=== PATIENT | female | born 1945 | race Two or more races ===

== ENCOUNTER 2017-09-19 22:53 | Emergency (ER) | payer MEDICAID, OTHER ==
[~2017-09-19] VITALS: Ht 154.9 cm; Wt 58.1 kg
[~2017-09-19 22:53] MED LIST: FLUT100M7; GABA300C10; NAPR500T31; PROAIR
[2017-09-19 23:31] LABS: Basophils # (auto) 0.1 uL; Basophils % (auto) 0.5 % (0.0-2.0); Eosinophils # (auto) 0 uL; Eosinophils % (auto) 0.2 % (0.0-7.0); Hematocrit 41.2 % (36.0-46.0); Hemoglobin 13.7 g/dL (12.2-16.2); Lymphocytes # (auto) 1.8 uL; Lymphocytes % (auto) 10.6 % (10.0-50.0); Mean Corpuscular Hemoglobin 30.4 pg (28.0-32.0); Mean Corpuscular Hgb Conc. 33.2 g/dL (32.0-36.0); Mean Corpuscular Volume 91.7 fL (80.0-100.0); Monocytes # (auto) 0.7 uL; Monocytes % (auto) 4.4 % (0.0-12.0); Neutrophils % (auto) 84.3 % (37.0-80.0); Platelet Count (auto) 357 10^3/uL (140-450); Red Cell Distribution Width 12.8 % (11.8-14.3); White Blood Cell 16.6 10^3/uL (4.4-10.8)
[2017-09-19 23:47] LABS: Urine Bacteria NONE SEEN /hpf (None Seen); Urine Blood 3+ /uL (Negative); Urine Specific Gravity 1.016 (1.001-1.035); Urine WBC 982 /hpf (0 - 5); Urine WBC Clumps PRESENT /hpf (None Seen)
[2017-09-19 23:49] LABS: Albumin 4.2 g/dL (3.4-5.0); BUN/Creatinine Ratio 23.3; Potassium 3.4 mmol/L (3.5-5.1)
[2017-09-19 23:52] LABS: Bilirubin, Total 0.4 mg/dL (0.2-1.0); Total Protein 7.7 g/dL (6.4-8.2)
[2017-09-20] MEDS ORDERED: cefTRIAXone SOD 1,000 MG VL IM ONE (04:30)
[2017-09-20 04:48] VITALS: BP 141/71
== END 2017-09-20 04:51 | disposition home or self-care (01) ==
LOC: ER 22:53
DX: N39.0 Urinary tract infection, site not specified (principal); D72.829 Elevated white blood cell count, unspecified; E78.5 Hyperlipidemia, unspecified
CPT/HCPCS: 36415; 80053; 81001; 85025; 96372; 99284; J0696

== ENCOUNTER 2019-12-13 20:21 | Emergency (ER) | payer OTHER ==
[~2019-12-13] VITALS: Ht 165.1 cm; Wt 49.9 kg
[2019-12-13 22:14] VITALS: BP 141/62
[2019-12-13] MEDS ORDERED: methylPREDNISolone SOD SUCC 125 MG/2 ML VL IM ONE (22:15)
[2019-12-13] MEDS ORDERED: diphenhdrAMINE HCL 50 MG/1 ML VL IM ONE (22:15)
== END 2019-12-14 00:01 | disposition home or self-care (01) ==
LOC: EDBD 20:21 → ER 20:22
DX: T78.1XXA Other adverse food reactions, not elsewhere classified, initial encounter (principal); L50.0 Allergic urticaria; X58.XXXA Exposure to other specified factors, initial encounter
CPT/HCPCS: 96372; 99284; J1200; J2930

== ENCOUNTER 2019-12-21 20:45 | Emergency (ER) | payer OTHER ==
[~2019-12-21] VITALS: Ht 162.6 cm; Wt 59.9 kg
[2019-12-21 21:10] LABS: Basophils # (auto) 0 10 ^3/uL (0-0.2); Basophils % (auto) 0.3 % (0.0-2.0); Eosinophils # (auto) 0 10 ^3/uL (0-0.8); Eosinophils % (auto) 0.1 % (0.0-7.0); Hematocrit 41.1 % (36.0-46.0); Hemoglobin 13.6 g/dL (12.2-16.2); Lymphocytes % (auto) 8.7 % (10.0-50.0); Mean Corpuscular Hemoglobin 30.7 pg (28.0-32.0); Mean Corpuscular Hgb Conc. 33.2 g/dL (32.0-36.0); Mean Corpuscular Volume 92.4 fL (80.0-100.0); Monocytes # (auto) 0.4 10 ^3/uL (0-1.3); Monocytes % (auto) 3.6 % (0.0-12.0); Neutrophils # (auto) 9.7 10 ^3/uL (1.6-8.6); Neutrophils % (auto) 87.3 % (37.0-80.0); Nucleated Red Blood Cells % 0.1 %; Platelet Count (auto) 438 10^3/uL (140-450); Red Blood Cells 4.45 10^6/uL (4.0-5.20); Red Cell Distribution Width 13.1 % (11.8-14.3); White Blood Cell 11.1 10^3/uL (4.4-10.8)
[2019-12-21 21:15] LABS: Urine Bacteria NONE SEEN /hpf (None Seen); Urine Blood 1+ /uL (Negative); Urine Specific Gravity 1.011 (1.001-1.035); Urine WBC 1 /hpf (0 - 5)
[2019-12-21] MEDS ORDERED: cefTRIAXone 1GM/50ML D5W 50 ML IV ONE (21:30)
[2019-12-21 21:40] LABS: Albumin 4.1 g/dL (3.4-5.0); Calcium 7.9 mg/dL (8.5-10.1); Potassium 3.2 mmol/L (3.5-5.1)
[2019-12-21 21:44] LABS: Bilirubin, Total 0.6 mg/dL (0.2-1.0)
[2019-12-21 21:58] LABS: Amylase 42 U/L (25-115)
[2019-12-21] MEDS ORDERED: SODIUM CHLORIDE 0.9% 1,000 ML IV ONE (22:00)
[2019-12-21] MEDS: POTASSIUM CHL 20MEQ/100ML 100 ML IV SCH ×2 (22:16→23:58)
[2019-12-22 02:59] VITALS: BP 129/55
== END 2019-12-22 02:55 | disposition home or self-care (01) ==
LOC: ER 20:45 → EDBD 20:45 → ER 12-22 02:55
DX: E87.6 Hypokalemia (principal); E87.1 Hypo-osmolality and hyponatremia; N39.0 Urinary tract infection, site not specified; F41.9 Anxiety disorder, unspecified; M19.90 Unspecified osteoarthritis, unspecified site; E78.5 Hyperlipidemia, unspecified
CPT/HCPCS: 36415; 71045; 80053; 81001; 82150; 83690; 83735; 84484; 85025; 93005; 96365; 96366; 96367; 99285; J0696; J3480; J7030

== ENCOUNTER 2020-07-03 21:04 | Emergency (ER) | payer OTHER ==
[~2020-07-03] VITALS: Ht 157.5 cm; Wt 61.2 kg
[2020-07-03] MEDS ORDERED: ACETAMINOPHEN 325 MG TAB PO ONE (21:30)
[2020-07-03 22:11] LABS: Basophils # (auto) 0 10 ^3/uL (0-0.2); Basophils % (auto) 0.2 % (0.0-2.0); Eosinophils # (auto) 0 10 ^3/uL (0-0.8); Hematocrit 38.7 % (36.0-46.0); Hemoglobin 12.6 g/dL (12.2-16.2); Lymphocytes # (auto) 0.3 10 ^3/uL (0.4-5.4); Lymphocytes % (auto) 1.9 % (10.0-50.0); Mean Corpuscular Hemoglobin 30.2 pg (28.0-32.0); Mean Corpuscular Hgb Conc. 32.7 g/dL (32.0-36.0); Mean Corpuscular Volume 92.4 fL (80.0-100.0); Monocytes # (auto) 0.4 10 ^3/uL (0-1.3); Monocytes % (auto) 2.5 % (0.0-12.0); Neutrophils # (auto) 16.3 10 ^3/uL (1.6-8.6); Neutrophils % (auto) 95.4 % (37.0-80.0); Platelet Count (auto) 357 10^3/uL (140-450); Red Blood Cells 4.18 10^6/uL (4.0-5.20); White Blood Cell 17.1 10^3/uL (4.4-10.8)
[2020-07-03 22:26] LABS: Albumin 3.3 g/dL (3.4-5.0); Amylase 28 U/L (25-115); Anion Gap 7 (5-15); Blood Urea Nitrogen 15 mg/dL (7-18); Calcium 8.4 mg/dL (8.5-10.1); Carbon Dioxide 23 mmol/L (21-32); Chloride 107 mmol/L (98-107); Glucose 149 mg/dL (74-106); Lipase 72 U/L (73-393); Potassium 3.5 mmol/L (3.5-5.1); Sodium 137 mmol/L (136-145)
[2020-07-03 22:32] LABS: Alanine Aminotransferase 18 U/L (13-56); Alkaline Phosphatase 70 U/L (45-117); Aspartate Aminotransferase 18 U/L (15-37); BUN/Creatinine Ratio 19.5; Bilirubin, Total 0.8 mg/dL (0.2-1.0); GFR African American 94 mL/min; GFR Non-African American 77 mL/min; Total Protein 7.3 g/dL (6.4-8.2)
[2020-07-04 00:20] LABS: Urine Bacteria FEW /hpf (None Seen); Urine Blood 2+ /uL (Negative); Urine Specific Gravity 1.013 (1.001-1.035); Urine WBC 727 /hpf (0 - 5); Urine WBC Clumps PRESENT /hpf (None Seen)
[2020-07-04] MEDS ORDERED: cefTRIAXone 1GM/50ML D5W 50 ML IV ONE (01:00)
[2020-07-04] MEDS ORDERED: MORPHINE SULFATE 4 MG/ML SYR/VIAL IV ONE (02:00)
[2020-07-04] MEDS ORDERED: ONDANSETRON HCL 4 MG/2 ML VIAL IV ONE (02:00)
[2020-07-04 05:53] VITALS: BP 107/46
== END 2020-07-04 05:14 | disposition home or self-care (01) ==
LOC: ER 21:04 → EDBD 21:04 → ER 07-04 05:14
DX: S30.1XXA Contusion of abdominal wall, initial encounter (principal); N39.0 Urinary tract infection, site not specified; K59.00 Constipation, unspecified; R51.9 Headache, unspecified; E78.5 Hyperlipidemia, unspecified; Z79.899 Other long term (current) drug therapy; X58.XXXA Exposure to other specified factors, initial encounter; Y93.89 Activity, other specified; Y92.89 Other specified places as the place of occurrence of the external cause; Y99.8 Other external cause status
CPT/HCPCS: 36415; 70450; 74176; 80053; 81001; 82150; 83605; 83690; 84484; 85025; 87040; 87077; 87086; 87088; 87186; 93005; 96365; 96375; 99285; J0696; J2270; J2405

== ENCOUNTER 2021-04-14 05:41 | Emergency (ER) | payer OTHER ==
[~2021-04-14] VITALS: Ht 154.9 cm; Wt 59.0 kg
[2021-04-14 07:28] VITALS: BP 122/52
[2021-04-14] MEDS ORDERED: ACETAMINOPHEN 325 MG TAB PO ONE (07:45)
== END 2021-04-14 07:56 | disposition home or self-care (01) ==
LOC: ER 05:41
DX: S90.32XA Contusion of left foot, initial encounter (principal); E78.5 Hyperlipidemia, unspecified; W18.39XA Other fall on same level, initial encounter; Y93.01 Activity, walking, marching and hiking; Y92.89 Other specified places as the place of occurrence of the external cause; Y99.8 Other external cause status
CPT/HCPCS: 73630

== ENCOUNTER 2023-06-28 17:20 | Emergency (ER) | payer OTHER ==
[~2023-06-28] VITALS: Ht 152.4 cm; Wt 68.1 kg
[~2023-06-28 17:20] MED LIST changes: +GABA-1250; -GABA300C10; +NAPR-746; -NAPR500T31
[2023-06-28 17:37] VITALS: BP 136/89; PULSE 74; RESP 18; O2SAT 99
[2023-06-28] MEDS ORDERED: TRAM50TA2 PO (20:57)
[2023-06-28] MEDS ORDERED: HYDROcodone-ACET 5/325MG TAB PO ONE (21:00)
[2023-06-28] MEDS ORDERED: predniSONE 20 MG TAB PO ONE (21:00)
== END 2023-06-28 21:27 | disposition home or self-care (01) ==
LOC: EDBD 17:20 → ER 17:20
DX: M25.562 Pain in left knee (principal); M17.12 Unilateral primary osteoarthritis, left knee; E78.5 Hyperlipidemia, unspecified; Z79.899 Other long term (current) drug therapy
CPT/HCPCS: 73700; 99284; J7512

== ENCOUNTER 2023-11-05 10:03 | Emergency (ER) | payer OTHER, MEDICAID ==
[~2023-11-05] VITALS: Ht 160 cm; Wt 50.0 kg
[~2023-11-05 10:03] MED LIST changes: +TRAM50TA2 PO
[2023-11-05] MEDS: MORPHINE SULFATE INJ 2 MG/ml SYRG IV ONE (12:46)
[2023-11-05 14:00] VITALS: BP 97/72; PULSE 65; RESP 18; O2SAT 96
[2023-11-05] MEDS ORDERED: HYDR1TAB97 PO (14:26)
== END 2023-11-05 15:05 | disposition home or self-care (01) ==
LOC: ER 10:03 → EDBD 10:03 → ER 15:02
DX: S52.592A Other fractures of lower end of left radius, initial encounter for closed fracture (principal); S42.495A Other nondisplaced fracture of lower end of left humerus, initial encounter for closed fracture; M19.90 Unspecified osteoarthritis, unspecified site; E78.5 Hyperlipidemia, unspecified; Z79.899 Other long term (current) drug therapy; W18.39XA Other fall on same level, initial encounter; Y93.89 Activity, other specified; Y92.89 Other specified places as the place of occurrence of the external cause; Y99.8 Other external cause status
CPT/HCPCS: 29125; 73090; 73130; 96374; 99285; J2270; 29105